=== PATIENT | male | born 1985 | race Caucasian/White ===

== ENCOUNTER 2019-07-02 12:36 | Emergency (ER) | payer MEDICAID, OTHER ==
[~2019-07-02] VITALS: Ht 182.9 cm; Wt 65.9 kg
[2019-07-02 13:45] VITALS: BP 125/79
== END 2019-07-02 13:59 | disposition home or self-care (01) ==
LOC: EMS 12:39
DX: K02.9 Dental caries, unspecified (principal); R03.0 Elevated blood-pressure reading, without diagnosis of hypertension; Z87.891 Personal history of nicotine dependence

== ENCOUNTER 2019-11-11 14:22 | Emergency (ER) | payer OTHER ==
[~2019-11-11] VITALS: Ht 182.9 cm; Wt 68.2 kg
[2019-11-11 16:19] VITALS: BP 118/81
== END 2019-11-11 16:52 | disposition home or self-care (01) ==
LOC: EMS 14:24
DX: K52.89 Other specified noninfective gastroenteritis and colitis (principal); Z87.891 Personal history of nicotine dependence

== ENCOUNTER 2020-01-19 14:16 | Emergency (ER) | payer OTHER ==
[~2020-01-19] VITALS: Ht 182.9 cm; Wt 68.2 kg
[2020-01-19 17:04] VITALS: BP 136/86
== END 2020-01-19 17:06 | disposition home or self-care (01) ==
LOC: EMS 14:20
DX: K59.00 Constipation, unspecified (principal); Z87.891 Personal history of nicotine dependence

== ENCOUNTER 2021-07-12 08:02 | Emergency (ER) | payer OTHER ==
[~2021-07-12] VITALS: Ht 170.2 cm; Wt 65.0 kg
[2021-07-12 08:05] VITALS: BP 123/77
[2021-07-12] MEDS ORDERED: PENICILLIN V POTASSIUM 500 MG TABLET PO ONE (09:00)
[2021-07-12] MEDS ORDERED: OxyCODONE HCL/ACETAMINOPHEN 5-325 MG TABLET PO ONE (09:00)
== END 2021-07-12 09:29 | disposition home or self-care (01) ==
LOC: EMS 08:06
DX: K02.9 Dental caries, unspecified (principal); K08.89 Other specified disorders of teeth and supporting structures; Z87.891 Personal history of nicotine dependence
CPT/HCPCS: 99283

== ENCOUNTER 2023-05-14 16:04 | Emergency (ER) | payer OTHER ==
[~2023-05-14] VITALS: Ht 182.9 cm; Wt 63.6 kg
[2023-05-14 18:52] VITALS: TEMP 98.6
[2023-05-14] MEDS ORDERED: TRAM-559 PO ×2 (19:14→19:18)
[2023-05-14] MEDS ORDERED: AMOX1TAB16 PO (19:14)
[2023-05-14 21:42] VITALS: BP 115/66; PULSE 70; RESP 16
== END 2023-05-14 21:44 | disposition home or self-care (01) ==
LOC: EMS 16:05
DX: S03.2XXA Dislocation of tooth, initial encounter (principal); K02.9 Dental caries, unspecified; Z87.891 Personal history of nicotine dependence; Z91.018 Allergy to other foods; X58.XXXA Exposure to other specified factors, initial encounter; Y93.89 Activity, other specified; Y92.89 Other specified places as the place of occurrence of the external cause; Y99.8 Other external cause status
CPT/HCPCS: 99283; Z7502

== ENCOUNTER 2024-05-31 19:21 | Emergency (ER) | payer MEDICAID, OTHER ==
[~2024-05-31] VITALS: Ht 180.3 cm; Wt 70.5 kg
[~2024-05-31 19:21] MED LIST: ACET-2247 PO
[2024-05-31 22:12] VITALS: BP 150/90; PULSE 75; RESP 16; TEMP 98.3; O2SAT 100
[2024-05-31] MEDS: LIDOCAINE 1% 10 ML VIAL SQ ONE (22:18)
[2024-05-31] MEDS: TraMADol HCL 50 MG TABLET PO ONE (22:19)
[2024-05-31] MEDS: KETOROLAC TROMETHAMINE 30 MG/ML VIAL IM ONE (22:19)
[2024-05-31] MEDS: AMOXICILLIN TRIHYDRATE 250 MG CAPSULE PO ONE (22:19)
[2024-05-31] MEDS ORDERED: AMOX250C4 PO (22:46)
== END 2024-05-31 23:02 | disposition home or self-care (01) ==
LOC: EMS 19:21
DX: K04.7 Periapical abscess without sinus (principal); K02.9 Dental caries, unspecified; Z91.018 Allergy to other foods
CPT/HCPCS: 99284; 96372; 41800; J1885; J3490

== ENCOUNTER 2024-09-24 11:43 | Emergency (ER) | payer MEDICAID, OTHER ==
[~2024-09-24] VITALS: Ht 180.3 cm; Wt 70.0 kg
[~2024-09-24 11:43] MED LIST changes: +AMOX250C4 PO
[2024-09-24 11:53] VITALS: BP 136/87; PULSE 96; RESP 18; TEMP 98.6; O2SAT 99
[2024-09-24] MEDS ORDERED: HYDR-4062 PO (12:57)
[2024-09-24] MEDS ORDERED: PENI500T2 PO (12:57)
== END 2024-09-24 13:15 | disposition home or self-care (01) ==
LOC: EMS 12:02
DX: K02.9 Dental caries, unspecified (principal); K04.7 Periapical abscess without sinus; Z87.891 Personal history of nicotine dependence
CPT/HCPCS: 99283; Z7502